=== PATIENT | female | born 1945 | race Hispanic/Latino ===

== ENCOUNTER 2017-12-13 16:32 | Emergency (ER) | payer SELFPAY ==
--- NOTE | 2017-12-13 17:37 | CT ---
HEAD CT WITHOUT CONTRAST: 12/13/17 HISTORY: Fall. Posttraumatic pain. COMPARISON: None. TECHNIQUE: Noncontrast head CT is performed from skull base to skull vertex. FINDINGS: No parenchymal hemorrhage. No extra-axial hematoma. No midline shift. Basilar cisterns are patent. Ag e appropriate brain volume. Cortical vang-white matter differentiation is preserved. Ventricles and sulci are patent and symmetric. White matter hypodensities due to chronic small vessel ischemic changes are noted. Adequate aeration of the sinuses and mastoid air cells. Calvarium is intact. There is a small midline frontal scalp hematoma. IMPRESSION: No acute intracranial process. No intracranial posttraumatic sequela. POS: [facility]
[2017-12-13 17:44] LABS: #Basophils 0.1 thou/uL (0.0-0.2); #Eosinphils 0.1 thou/uL (0.0-0.7); #Lymphocytes 2.2 thou/uL (1.20-3.40); #Monocytes 0.7 thou/uL (0.11-0.59); #Neutrophils 5.4 thou/uL (1.40-6.50); %Basophils 1.3 % (0.0-1.0); %Eosinophils 1.3 % (0.0-10.0); %Monocytes 7.8 % (0.0-10.0); %Neutrophils 63.6 % (42.0-75.0); Hemoglobin 14.5 g/dL (12.0-16.0); Mean Corpuscular HGB CONC 34.8 g/dL (32.0-36.0); Mean Corpuscular Hemoglobin 30.5 pg (27.0-31.0); Mean Corpuscular Volume 87.5 fL (78.0-98.0); Mean Platelet Volume 6.2 fL (7.4-10.4); Platelet Count 243 thou/uL (130-400); RBC Distribution Width 12.7 % (11.5-14.5); Red Blood Cell (RBC) Count 4.77 mill/uL (4.20-5.40); White Blood Cell (WBC) Count 8.4 thou/uL (4.8-10.8)
[2017-12-13] MEDS ORDERED: HYDROcodone/Acetaminophen 5/325 mg Tablet ONE (17:47)
[2017-12-13] MEDS ORDERED: Ibuprofen 200 MG TAB ONE (17:48)
[2017-12-13] MEDS ORDERED: Lisinopril 20 MG TAB ONE (17:48)
--- NOTE | 2017-12-13 17:48 | CT ---
FACE CT WITHOUT CONTRAST: 12/13/17 HISTORY: Fall. Evaluate for possible facial bone fracture. Patient landed on concrete. Hit her face. TECHNIQUE: Face CT is performed without contrast. Reformatted images are submitted for interpretation. FINDINGS: There is a hematoma involving the midline frontal scalp. Adequate aeration of the sinuses and mastoid air cells. Mandibular condyles are appropriately located. No evidence of a maxilla or mandible fract ure. Pterygoid plates are intact. Zygomatic arches are intact. There is evidence of a remote right orbital floor fracture with herniation of intraorbital fat throug h the orbital floor depression. No evidence of an acute fracture. No significant fluid in the right m axillary sinus. Bilateral osteomeatal complexes are patent. Mild rightward deviation of an intact nasal septum. Patient is essentially edentulous. The visualized oral cavity is unremarkable. Midline fatty raphae o f the tongue is preserved. IMPRESSION: 1. No acute posttraumatic sequela. 2. Remote right orbital floor fracture with inferior herniation of the intraorbital fat through the defect. Correlate clinically for longstanding entrapment. POS: [facility]
[2017-12-13 17:53] LABS: Clarity Clear (Clear)
[2017-12-13 17:55] LABS: Bilirubin Negative (Negative); Blood, Urine Negative (Negative); Glucose, Urine (Dipstick) Negative (Negative); Leukocyte Trace (Negative); Nitrite Negative (Negative); Protein, Urine (Dipstick) Negative (Neg-Trace); Specific Gravity, Urine 1.003 (1.002-1.036); Urobilinogen 0.2 mg/dL (0.2-1.0); pH, Urine 5.5 (5.0-9.0)
[2017-12-13 17:59] LABS: Bacteria/HPF None Seen HPF (None Seen); Crystals/HPF None Seen HPF (Negative); Hyaline Casts/LPF NONE SEEN LPF (0-3 Hyaline); Other Casts/LPF None Seen LPF (0-3 Hyaline); Oval Fat Bodies/HPF None Seen HPF (None Seen); RBC/HPF None Seen HPF (0-3); Renal Epithelial None Seen HPF (0-3); Sperm/HPF None Seen HPF (None Seen); Squamous Epithelial None Seen HPF (0-3); Transitional Epithelial NONE SEEN HPF (0-3); Trichomonas/HPF None Seen HPF (None Seen); WBC/HPF 0-3 HPF (0-3); Yeast-All Forms None Seen HPF (None Seen)
[2017-12-13 18:00] LABS: ALT (SGPT) 19 U/L (8-55); AST (SGOT) 23 U/L (5-34); Albumin 4.1 g/dL (3.4-4.8); Alkaline Phosphatase 70 U/L (40-150); Anion Gap 16 mmol/L (10-20); BUN (Urea Nitrogen) 9 mg/dL (9.8-20.1); Bilirubin, Total 0.4 mg/dL (0.2-1.2); Calc. Creatinine Clearance 0 mL/min (70-130); Calcium 9.7 mg/dL (7.8-10.44); Carbon Dioxide 24 mmol/L (23-31); Chloride 105 mmol/L (98-107); Estimated GFR-MDRD 63; Globulin 3.6 g/dL (2.4-3.5); Glucose 117 mg/dL (83-110); Potassium 3.6 mmol/L (3.5-5.1); Protein, Total 7.7 g/dL (6.0-8.3); Sodium 141 mmol/L (136-145)
[2017-12-13 18:04] LABS: CKMB 1.3 ng/mL (0-6.6); Troponin I Less than 0.010 ng/mL (< 0.028)
--- NOTE | 2017-12-13 18:34 | RAD ---
RIGHT KNEE FOUR VIEWS: 12/13/17 HISTORY: Injury. Fall. Pain. COMPARISON: None. FINDINGS: No joint effusion. Joint spaces are preserved. No fracture. No malalignment. Mildly focal prominent bony excrescence along the medial proximal tibia. Correlate clinically for poi nt tenderness in this region. If there is concern for possible osteochondroma, nonemergent MRI can be performed. IMPRESSION: Findings as above. POS: [facility]
== END 2017-12-13 18:36 | disposition home or self-care (01) ==
LOC: BURERS 16:32
DX: S09.90XA Unspecified injury of head, initial encounter (principal); S60.222A Contusion of left hand, initial encounter; S60.221A Contusion of right hand, initial encounter; S80.02XA Contusion of left knee, initial encounter; S80.01XA Contusion of right knee, initial encounter; S00.83XA Contusion of other part of head, initial encounter; F41.9 Anxiety disorder, unspecified; J44.9 Chronic obstructive pulmonary disease, unspecified; I10 Essential (primary) hypertension; F17.220 Nicotine dependence, chewing tobacco, uncomplicated; W19.XXXA Unspecified fall, initial encounter
CPT/HCPCS: 70450; 70486; 80053; 81003; 81015; 82553; 84484; 85025; 93005

== ENCOUNTER 2017-12-24 14:07 | Outpatient (CLI) | payer MEDICARE, MEDICAID ==
--- NOTE | 2017-12-24 15:41 | RAD ---
LUMBAR SPINE 3 VIEWS: Date: 12/24/17 Anterior compression fractures of T11 and T12 are evident, though they do not appear new. The T12 fra cture is the most prominent and is reduced in height anteriorly by about 40%. There may be the faires t amount of wedging of the superior end plate of L1. No recent fractures appreciated. Disc spaces are all normal in height. Osteophytes are seen at several lumbar levels. The SI joints appear normal. IMPRESSION: 1. Compression fractures of T11 and T12, predominantly the latter. Almost certainly longstanding. 2. Mild to moderate degenerative changes of the lumbar spine. POS: HOME
== END 2017-12-24 14:08 | disposition home or self-care (01) ==
LOC: BURRAD 14:07
PROVIDERS: ATTEND Family Medicine
DX: M51.36 Other intervertebral disc degeneration, lumbar region (principal); M47.896 Other spondylosis, lumbar region; Z87.81 Personal history of (healed) traumatic fracture
CPT/HCPCS: 72100

== ENCOUNTER 2017-12-26 15:28 | Inpatient (IN) | payer MEDICARE, MEDICAID ==
[2017-12-26 16:20] LABS: #Basophils 0.1 thou/uL (0.0-0.2); #Eosinphils 0.2 thou/uL (0.0-0.7); #Lymphocytes 2.2 thou/uL (1.20-3.40); #Monocytes 0.6 thou/uL (0.11-0.59); #Neutrophils 3.7 thou/uL (1.40-6.50); %Basophils 1.7 % (0.0-1.0); %Eosinophils 2.3 % (0.0-10.0); %Lymphocytes 32.5 % (21.0-51.0); %Monocytes 8.7 % (0.0-10.0); %Neutrophils 54.9 % (42.0-75.0); Hemoglobin 14.4 g/dL (12.0-16.0); Mean Corpuscular HGB CONC 34.8 g/dL (32.0-36.0); Mean Corpuscular Hemoglobin 30.7 pg (27.0-31.0); Mean Corpuscular Volume 88.3 fL (78.0-98.0); Mean Platelet Volume 5.9 fL (7.4-10.4); Platelet Count 271 thou/uL (130-400); RBC Distribution Width 12.8 % (11.5-14.5); Red Blood Cell (RBC) Count 4.69 mill/uL (4.20-5.40); White Blood Cell (WBC) Count 6.8 thou/uL (4.8-10.8)
[2017-12-26 16:25] LABS: Clarity Slightly Cloudy (Clear); Specific Gravity, Urine 1.025 (1.005-1.030)
[2017-12-26 16:26] LABS: Bilirubin Negative (Negative); Blood, Urine Negative (Negative); Glucose, Urine (Dipstick) Negative (Negative); Leukocyte Negative (Negative); Nitrite Negative (Negative); Protein, Urine (Dipstick) Negative (Neg-Trace); Urobilinogen 0.2 mg/dL (0.2-1.0)
[2017-12-26 16:36] LABS: ALT (SGPT) 20 U/L (8-55); AST (SGOT) 23 U/L (5-34); Alkaline Phosphatase 53 U/L (40-150); Anion Gap 14 mmol/L (10-20); BUN (Urea Nitrogen) 12 mg/dL (9.8-20.1); Bilirubin, Total 0.6 mg/dL (0.2-1.2); Calc. Creatinine Clearance 0 mL/min (70-130); Calcium 9.2 mg/dL (7.8-10.44); Carbon Dioxide 24 mmol/L (23-31); Chloride 105 mmol/L (98-107); Estimated GFR-MDRD 59; Globulin 3.5 g/dL (2.4-3.5); Glucose 159 mg/dL (83-110); Potassium 3.6 mmol/L (3.5-5.1); Protein, Total 7.5 g/dL (6.0-8.3); Sodium 139 mmol/L (136-145)
[2017-12-26 16:41] LABS: CKMB 0.7 ng/mL (0-6.6); Troponin I Less than 0.010 ng/mL (< 0.028)
--- NOTE | 2017-12-26 17:34 | CT ---
CT OF THE BRAIN WITHOUT CONTRAST 12/26/[address] was compared with prior study of 12/13. A few patchy areas of hypolucency are seen th roughout the deep white matter consistent with chronic ischemic changes. The various areas seem no di fferent than they were on the 12/13 exam. There were no findings strongly suggestive of acute stroke. MRI would be more sensitive to such. There is no sign of edema, bleeding, mass or ventricular enlarge ment. The visible paranasal sinuses are clear. IMPRESSION: Mild chronic ischemic changes, no different than the prior scan. No acute findings. POS: HOME
--- NOTE | 2017-12-26 17:36 | RAD ---
PORTABLE CHEST 12/26/17 An AP portable film at 1543 shows a normal sized heart and clear lungs. No infiltrate or effusion was seen. There is no vascular congestion or edema. The trachea is midline. IMPRESSION: No acute thoracic finding. POS: HOME
[2017-12-26] MEDS ORDERED: methylPREDNISolone Sod Succ/PF 125 MG/2 ML VIAL ONE (17:40)
[2017-12-26] MEDS ORDERED: Azithromycin 250 MG TAB ONE (19:03)
[2017-12-26] MEDS ORDERED: cefTRIAXone\\ROCEPHIN 1 GM VIAL ONE (19:03)
[2017-12-26] MEDS ORDERED: Albuterol Sulfate 1.25 MG/3 ML NEB ONE (19:21)
[2017-12-26] MEDS ORDERED: Ondansetron HCl/PF 4 MG/2 ML Vial IVP PRN (21:06)
[2017-12-26] MEDS ORDERED: Ondansetron ODT 4 MG TAB SL PRN (21:06)
[2017-12-26] MEDS ORDERED: Sodium Chloride 0.9% 1,000 ML IV SCH ×2 (21:06→23:24)
[2017-12-26] MEDS ORDERED: Albuterol Sulfate 2.5 mg/3 ml Neb NEB PRN (21:07)
--- NOTE | 2017-12-26 21:58 | CT ---
CT ANGIO OF THE CHEST WITH CONTRAST 12/26/[address] of the chest was performed after a bolus of IV contrast for evaluation of shortness of telma th and an elevated D-dimer. Axial slices were acquired and then 3D MIP reconstructions at various an gles through the coronary arteries were obtained. There is excellent opacification of pulmonary arterial tree. No filling defects were seen to suggest emboli. There is no sign of aortic aneurysm or dissection. The heart is enlarged somewhat but there i s no pericardial effusion. The vessels are rather prominent throughout the lungs raising the question of mild vascular congestion. The patient does have a large amount of scattered atelectasis in the ying ngs. The interstitium is a bit prominent, so some of this could even be mild edema. There are no larg e effusions just potentially some very tiny ones posteriorly. Mediastinum shows no mass or significan t adenopathy. Scans into the upper abdomen reveal no adrenal mass. The visible portions of the liver showed no sign of mass. The spleen was normal in size. The upper halves of the kidneys were seen which showed no ac tanacross change. IMPRESSION: 1. No evidence of pulmonary embolism. 2. Mild cardiomegaly with possible mild vascular congestion. 3. Somewhat prominent but diffuse areas of atelectasis. POS: HOME
[2017-12-26] MEDS: Acetaminophen 325 MG TAB PO PRN (23:00)
[2017-12-26 23:08] VITALS: BMI 23.2
[2017-12-27 05:25] LABS: ALT (SGPT) 18 U/L (8-55); AST (SGOT) 18 U/L (5-34); Albumin 3.6 g/dL (3.4-4.8); Alkaline Phosphatase 50 U/L (40-150); Anion Gap 16 mmol/L (10-20); BUN (Urea Nitrogen) 13 mg/dL (9.8-20.1); Bilirubin, Total 0.3 mg/dL (0.2-1.2); Calc. Creatinine Clearance 41 mL/min (70-130); Calcium 8.8 mg/dL (7.8-10.44); Carbon Dioxide 19 mmol/L (23-31); Chloride 109 mmol/L (98-107); Estimated GFR-MDRD 54; Glucose 178 mg/dL (83-110); Potassium 3.9 mmol/L (3.5-5.1); Protein, Total 6.6 g/dL (6.0-8.3); Sodium 140 mmol/L (136-145)
[2017-12-27 05:36] LABS: #Lymphocytes 1.1 thou/uL (1.20-3.40); #Monocytes 0.1 thou/uL (0.11-0.59); #Neutrophils 8.5 thou/uL (1.40-6.50); %Basophils 0.3 % (0.0-1.0); %Monocytes 1.4 % (0.0-10.0); %Neutrophils 87.3 % (42.0-75.0); Mean Corpuscular HGB CONC 35.7 g/dL (32.0-36.0); Mean Corpuscular Hemoglobin 31.5 pg (27.0-31.0); Mean Corpuscular Volume 88.1 fL (78.0-98.0); Mean Platelet Volume 6.1 fL (7.4-10.4); Platelet Count 224 thou/uL (130-400); RBC Distribution Width 12.5 % (11.5-14.5); Red Blood Cell (RBC) Count 4.12 mill/uL (4.20-5.40); White Blood Cell (WBC) Count 9.7 thou/uL (4.8-10.8)
[2017-12-27] MEDS ORDERED: Prevnar 13-Val Conj/PF 0.5 ML SYRINGE IM ONE (09:00)
[2017-12-27] MEDS: Azithromycin 250 MG TAB PO SCH (09:11)
[2017-12-27] MEDS: cefTRIAXone\\ROCEPHIN 1 GM in Sodium Chloride 0.9% 100 ML IVPB SCH (09:11)
--- NOTE | 2017-12-27 10:59 | RAD ---
CHEST 2 VIEWS: Date: 12/27/17 Comparison is made with the 12/26/17 study. FINDINGS: The heart size remains stable. No lobar consolidation or effusion seen. The vessels may be minimally more prominent today than yesterday, but otherwise, there are no particular changes. There are severa l mild vertebral compressions in the low thoracic region that appear longstanding. The trachea is mid line. IMPRESSION: Similar to yesterday, but perhaps slightly increased vascular prominence. POS: HOME
[2017-12-27] MEDS: Acetaminophen 325 MG TAB PO PRN (13:29)
[2017-12-27] MEDS ORDERED: Lorazepam 0.5 MG TAB PO PRN (14:37)
--- NOTE | 2017-12-27 17:25 | HP ---
CHIEF COMPLAINT: Shortness of breath. HISTORY OF PRESENT ILLNESS: The patient is a 72-year-old white female with a history of COPD who maria del rosario arently moved to this area about 3 months ago and did not take her nebulizers with her when she moved and thus is on no respiratory medications, who says for the last 2 days has had increased shortness of breath with some occasional confusion and dry cough. She has had no chest pain, shortness of telma th is mainly with exertional ambulation. She does report about a week prior to admission, she was wa lking from [facility] back to the house and felt weak and tired and short of breath and fell down withou t true syncope. Other than that, she reports no significant new problems that shortness of breath be angela about 2 days ago with some wheezing, no fevers, no chills, no nausea, no vomiting, and no other s ignificant complaints. PAST MEDICAL HISTORY: 1. COPD. 2. Hypertension. 3. Hypothyroidism. 4. Gastroesophageal reflux disease. 5. History of osteoporosis with compression fractures of thoracic T11 and T12. 6. History of depression with anxiety. PAST SURGICAL HISTORY: Noncontributory. SOCIAL HISTORY: The patient denies any smoking use. She does dip snuff and had lived for many years with her who was a frequent smoker. ALLERGIES: PENICILLIN. CURRENT MEDICATIONS: Include Risperdal 10 mg at bedtime, lorazepam 1 mg q.12 h. p.r.n. anxiety, sert raline 100 mg daily, Tylenol with Codeine #3 one tablet every 6 hours p.r.n. pain, lisinopril 20 mg d aily, levothyroxine 125 mcg daily, omeprazole 40 mg daily, nitroglycerin sublingual p.r.n. chest pain for angina. REVIEW OF SYSTEMS: The patient reports no recent fevers, chills, or night sweats. No nausea, vomiti ng or diarrhea. No significant headache reported. The patient reports no significant weight loss no r weight gain. Appetite has been at its baseline. No dysuria, hematuria or change in urinary freque ncy. Patient denies any recent weight changes. No increased lower extremity edema. No rashes to th e skin noted. The patient denies any visual changes. She reports no significant increased back pain above her baseline and she reports her depression with anxiety is at its baseline, although she says "I had a lot of things to think about" Apparently her 3 months ago, necessitati ng her recent move. LABORATORY DATA: In the emergency room, she had a comprehensive metabolic panel significant for gluc ose of 159. CK-MBs were normal. BNP was normal. The patient also had a D-dimer that was slightly e levated at 0.82. She underwent a CT scan of the chest with contrast which showed no obvious signs of pulmonary emboli. LABORATORY AND X-RAY FINDINGS: Chest x-ray showed chronic changes without acute findings. CT scan o f the brain was within normal limits as well. Blood cultures and urine cultures were pending. Urina lysis was normal. PHYSICAL EXAMINATION: VITAL SIGNS: On admission significant for a pulse of 77, temperature 98.2, blood pressure 122/67, O2 sat was 86% on room air with ambulation and 96% on 2 liters. GENERAL: Elderly white female, alert and oriented x3. HEENT: Atraumatic, normocephalic. Extraocular movements are intact. Pupils equal, round, reactive to light and accommodation. NECK: Supple, no masses palpated. Oropharynx within normal limits. CHEST: Had coarse breath sounds, expiratory intermittent wheezes bilaterally. HEART: Regular rate and rhythm. ABDOMEN: Soft, nontender, nondistended, no masses palpated. Bowel sounds positive in all 4 quadrant s. EXTREMITIES: Show no cyanosis, clubbing or edema. ASSESSMENT AND PLAN: 1. Chronic obstructive pulmonary disease exacerbation. The patient is currently O2 dependent, which is not her baseline, exacerbation likely secondary to noncompliance with her nebulizers and possible recent upper respiratory infection. Blood cultures are pending. We will place patient on Zithromax and Rocephin pending blood cultures. We will start her on Solu-Medrol. She was given an initial do se in the emergency room, will be given q.8h 100 mg IV for the initial 24-48 hours. She will be star janice on nebulizers, DuoNebs q.i.d., and she will continue oxygen 2 liters per nasal cannula to keep sa turations above 89%. 2. Hypertension, presently controlled. Continue current medications. 3. Osteoporosis with vertebral fracture, Tylenol No. 3 p.r.n. pain. 4. Depression, presently stable. Continue on sertraline and Abilify. DISPOSITION: Hopefully, the patient will be home within 2-3 days depending upon how she improves wit h treatment of her COPD exacerbation.
[2017-12-28] MEDS: Levothyroxine Sodium 25 MCG TAB PO SCH (06:12)
[2017-12-28] MEDS: Levothyroxine Sodium 100 MCG TAB PO SCH (06:12)
[2017-12-28] MEDS: cefTRIAXone\\ROCEPHIN 1 GM in Sodium Chloride 0.9% 100 ML IVPB SCH (08:47)
[2017-12-28] MEDS: Lisinopril 20 MG TAB PO SCH (08:49)
[2017-12-28] MEDS: Azithromycin 250 MG TAB PO SCH (08:49)
[2017-12-28] MEDS: Aripiprazole 10 MG TAB PO SCH (08:49)
[2017-12-28] MEDS: Acetaminophen/Codeine 30-300mg Tablet PO PRN (21:37)
[2017-12-29] MEDS: Levothyroxine Sodium 100 MCG TAB PO SCH (05:36)
[2017-12-29] MEDS: Levothyroxine Sodium 25 MCG TAB PO SCH (05:36)
[2017-12-29 06:02] VITALS: TEMP 98.5
[2017-12-29] MEDS ORDERED: predniSONE 20 MG TAB PO SCH (09:00)
[2017-12-29] MEDS: cefTRIAXone\\ROCEPHIN 1 GM in Sodium Chloride 0.9% 100 ML IVPB SCH (09:12)
[2017-12-29] MEDS: Lisinopril 20 MG TAB PO SCH (09:13)
[2017-12-29] MEDS: Aripiprazole 10 MG TAB PO SCH (09:15)
[2017-12-29] MEDS: Azithromycin 250 MG TAB PO SCH (09:15)
[2017-12-29] MEDS: Acetaminophen/Codeine 30-300mg Tablet PO PRN (13:37)
[2017-12-29 17:51] VITALS: BP 137/74
[2017-12-30] MEDS ORDERED: Nitroglycerin 0.4 MG TAB (25 Tab Bottle) SL PRN (02:40)
[2017-12-30] MEDS ORDERED: Aripiprazole 10 MG TAB PO SCH (02:40)
[2017-12-30] MEDS ORDERED: Non-Formulary Item 1 EACH (Omeprazole [Omeprazole] 40 MG) PO SCH (02:40)
[2017-12-30] MEDS ORDERED: Lorazepam 0.5 MG TAB PO PRN (02:40)
[2017-12-30] MEDS ORDERED: Lisinopril 20 MG TAB PO SCH (02:40)
[2017-12-30] MEDS ORDERED: Acetaminophen/Codeine 30-300mg Tablet PO PRN (02:40)
[2017-12-30] MEDS ORDERED: Non-Formulary Item 1 EACH (Sertraline Hcl [Sertraline Hcl] 100 MG) PO SCH (02:40)
--- NOTE | 2017-12-30 02:40 | DIS ---
DATE OF ADMISSION: 12/26/2017 DATE OF DISCHARGE: 12/29/2017 ADMISSION DIAGNOSES: Chronic obstructive pulmonary disease exacerbation with hypoxia. SECONDARY DIAGNOSES: Include hypertension, osteoporosis, depression, hypothyroidism. PROCEDURES: 12/26/2017, chest x-ray shows no acute thoracic finding. 2017, brain CT shows mild chronic ischemic changes, no different than the prior scan with no acute findings. 12/26/2017, chest/thorax CTA shows no evidence of pulmonary embolism, mild cardiomegaly with possible mild vascular congestion, somewhat prominent, but diffuse areas of atelectasis. 12/27/2017, chest x-ray, similar to yesterday, but perhaps slightly increased vascular prominence. HOSPITAL COURSE: This is a 72-year-old female with COPD, recently moved to the area; however, has not had her typical p.r.n. nebulized medications. She presented to [facility] with complaints of dyspnea and slight confusion. In the emergency room, she notably had an elevated D-dimer, for which the above-mentioned CTA of the chest and thorax was done. The patient remained hypoxic with ambulation in the emergency room, and thus, she was admitted for further treatment for COPD exacerbation. On the floor, she was treated with both Rocephin and azithromycin along with IV Solu-Medrol and scheduled nebulized treatments. At rest, she was able to successfully wean off of supplemental O2. Her respiratory status gradually improved; however, she remains hypoxic with ambulation; therefore, home oxygen has been arranged. The patient has underlying physical deconditioning, and a consultation was performed by PT and OT. They have suggested that she continue PT/OT via home health. Home health has been arranged for this purpose with [facility]. The patient is afebrile with no leukocytosis and stable respiratory status, and is amenable to discharge home at this time. DISPOSITION: Patient will be discharged to her home setting where she lives with her daughter and will have further care via [facility] to include PT and OT. DISCHARGE MEDICATIONS: Include DuoNeb q.6 hours p.r.n., prednisone 20 mg p.o. daily x5 days, levothyroxine 125 mg p.o. daily, lisinopril 20 mg p.o. daily, Ativan 1 mg p.o. b.i.d. p.r.n., Protonix 40 mg p.o. daily, sertraline 100 mg p.o. daily. MTDD
[2017-12-30] MEDS ORDERED: Levothyroxine Sodium 50 MCG TAB PO SCH (06:00)
== END 2017-12-29 18:15 | disposition home health service (06) | DRG 192 ==
LOC: BURERS 15:28 → BURMED 18:09
PROVIDERS: ADMIT Family Medicine; ATTEND Family Medicine
DX: J44.1 Chronic obstructive pulmonary disease with (acute) exacerbation (principal); I10 Essential (primary) hypertension; F32.9 Major depressive disorder, single episode, unspecified; E03.9 Hypothyroidism, unspecified; K21.9 Gastro-esophageal reflux disease without esophagitis; R09.02 Hypoxemia; R53.1 Weakness; M81.0 Age-related osteoporosis without current pathological fracture; F17.220 Nicotine dependence, chewing tobacco, uncomplicated; F41.9 Anxiety disorder, unspecified; Z91.14 Patient's other noncompliance with medication regimen; Z88.0 Allergy status to penicillin; Z79.899 Other long term (current) drug therapy
CPT/HCPCS: 36415; 70450; 71045; 71046; 71275; 80053; 81003; 82553; 83880; 84484; 85025; 85379; 87040; 87086; 90471; 90670; 94640; 94760; 96374; 96375; A4216; G0009; G8978-GP-CK; G8979-GP-CJ; J0696; J2920; J2930; J7050; J7506; J7620

== ENCOUNTER 2018-10-24 21:23 | Emergency (ER) | payer MEDICARE, MEDICAID ==
[~2018-10-24 21:23] MED LIST: Iopamidol 370 76% 125 ML VIAL FS ONE
[2018-10-24] MEDS ORDERED: Nitroglycerin 2% Ointment 1 INCH/1 GM Packet ONE (21:46)
[2018-10-24 21:59] LABS: #Basophils 0.1 thou/uL (0.0-0.2); #Eosinphils 0.2 thou/uL (0.0-0.7); #Lymphocytes 1.8 thou/uL (1.20-3.40); #Monocytes 0.6 thou/uL (0.11-0.59); #Neutrophils 3.6 thou/uL (1.40-6.50); %Basophils 1.3 % (0.0-1.0); %Eosinophils 3.7 % (0.0-10.0); %Lymphocytes 28.7 % (21.0-51.0); %Monocytes 9.9 % (0.0-10.0); %Neutrophils 56.4 % (42.0-75.0); Hemoglobin 13.2 g/dL (12.0-16.0); Mean Corpuscular HGB CONC 31.9 g/dL (32.0-36.0); Mean Corpuscular Hemoglobin 30.6 pg (27.0-31.0); Mean Corpuscular Volume 95.9 fL (78.0-98.0); Mean Platelet Volume 7.2 fL (7.4-10.4); Platelet Count 216 thou/uL (130-400); RBC Distribution Width 12.6 % (11.5-14.5); Red Blood Cell (RBC) Count 4.33 mill/uL (4.20-5.40); White Blood Cell (WBC) Count 6.4 thou/uL (4.8-10.8)
[2018-10-24 22:12] LABS: ALT (SGPT) 10 U/L (8-55); AST (SGOT) 17 U/L (5-34); Albumin 3.9 g/dL (3.4-4.8); Alkaline Phosphatase 86 U/L (40-150); Anion Gap 12 mmol/L (10-20); BUN (Urea Nitrogen) 10 mg/dL (9.8-20.1); Bilirubin, Total 0.4 mg/dL (0.2-1.2); Calc. Creatinine Clearance 0 mL/min (70-130); Calcium 9.3 mg/dL (7.8-10.44); Carbon Dioxide 29 mmol/L (23-31); Chloride 105 mmol/L (98-107); Estimated GFR-MDRD 68; Globulin 3.1 g/dL (2.4-3.5); Glucose 100 mg/dL (83-110); Potassium 3.7 mmol/L (3.5-5.1); Sodium 142 mmol/L (136-145)
[2018-10-24] MEDS ORDERED: Furosemide 40 MG/4 ML VIAL ONE (22:29)
[2018-10-24] MEDS ORDERED: hydrALAZINE 20 MG/ML VIAL ONE (23:29)
[2018-10-24] MEDS ORDERED: cloNIDine 0.1 MG TAB ONE (23:48)
[2018-10-24] MEDS ORDERED: Lorazepam 0.5 MG TAB ONE (23:48)
--- NOTE | 2018-10-25 09:12 | RAD ---
PORTABLE CHEST: Date: 10/24/18 An AP portable film at 2155 hours is compared with the 12/27/17 study. FINDINGS: The heart remains normal in size. The vasculature seems ever so slightly prominent compared to before , but gross pulmonary edema or pleural effusions are not seen. No lobar consolidation is evident. IMPRESSION: Minor vascular prominence. POS: HOME
--- NOTE | 2018-10-25 09:13 | RAD ---
RIGHT FOOT 3 VIEWS: Date: 10/24/18 Bones are slightly osteopenic, but no fracture is seen. All bones and joints appear intact. IMPRESSION: No acute findings. POS: HOME
--- NOTE | 2018-10-25 10:09 | CT ---
PRELIMINARY REPORT/[facility]/EMERGENCY AFTER HOURS PROCEDURE: EXAM: CT Angiography Chest With Contrast EXAM DATE/TIME: 10/24/2018 10:45 PM CLINICAL HISTORY: 73 years old, female; Signs and symptoms; Angina and shortness of breath; Patient HX: PT stated she w as having difficulty breathing starting a few days ago and today started having cp; Additional info: R/O pe, elev d dimer TECHNIQUE: Imaging protocol: Axial computed tomographic angiography images of the chest with intravenous contras t using CT angiography protocol. 3D rendering: MIP reconstructed images were created and reviewed. Radiation optimization: All CT scans at this facility use at least one of these dose optimization marvin hniques: automated exposure control; mA and/or kV adjustment per patient size (includes targeted exam s where dose is matched to clinical indication); or iterative reconstruction. Contrast material: ISOVUE 370; Contrast volume: 100 ml; Contrast route: RT AC; COMPARISON: No relevant prior studies available. FINDINGS: Pulmonary arteries: No visible acute pulmonary embolism. Aorta: There are atherosclerotic aortic calcifications. Lungs: There is bibasilar atelectatic change or scarring. There is patchy groundglass opacity in the right upper lobe suspicious for patchy pneumonitis or asymmetric pulmonary edema. Pleural space: Normal. No pneumothorax. No pleural effusion. Heart: Normal. No cardiomegaly. No pericardial effusion. Mediastinum: There is a small hiatal hernia. Lymph nodes: There is mild mediastinal and bilateral hilar lymphadenopathy. Bones/joints: There are chronic appearing compression fractures involving the T10 and T9 vertebral geurrero dies. Soft tissues: Unremarkable. IMPRESSION: 1. There is patchy groundglass opacity in the right upper lobe suspicious for patchy pneumonitis or a symmetric pulmonary edema. 2. There is mild mediastinal and bilateral hilar lymphadenopathy. 3. There is a small hiatal hernia. 4. No visible acute pulmonary embolism. Thank you for allowing us to participate in the care of your patient. Dictated and Authenticated by: Denton Jimenez MD 10/24/2018 11:25 PM Central Time ([place] & [place]) FINAL REPORT CT ANGIO OF CHEST: Date: 10/24/[address] of the chest was obtained and injection of IV contrast was done. MIP reconstructions were d one afterwards. Comparison made with the prior study of 12/26/17. FINDINGS: There is excellent filling of the pulmonary arteries. No defects seen to suggest emboli. There is no evidence of aortic aneurysm or dissection. No pericardial effusion seen. Both coronary artery systems fill well. Some minor amounts of mediastinal adenopathy are present, which is nonspecific. The lungs show some mild interstitial prominence and basilar atelectasis. There is a patchy ground-gl ass area in the right upper lobe that could be a small area of pneumonitis or asymmetric edema. I fav or the former. There are no effusions. A small hiatal hernia is present, which was present before. Th e visible portions of the upper abdomen were unremarkable. An incidental finding was compression of two thoracic vertebra, approximately T8 and T9, and they are unchanged from the prior CT scans. IMPRESSION: 1. No evidence of pulmonary embolism. 2. Patchy ground-glass area in the right upper lobe. Possibly pneumonitis or asymmetric edema. Mild interstitial prominence and basilar atelectasis elsewhere. 3. Small hiatal hernia, longstanding. Report in agreement with preliminary reading by Geov[facility]. POS: HOME
== END 2018-10-24 23:45 | disposition short-term general hospital (02) ==
LOC: BURERS 21:23
DX: I11.0 Hypertensive heart disease with heart failure (principal); I50.9 Heart failure, unspecified; I16.0 Hypertensive urgency; E03.9 Hypothyroidism, unspecified; K21.9 Gastro-esophageal reflux disease without esophagitis; J44.9 Chronic obstructive pulmonary disease, unspecified; F41.9 Anxiety disorder, unspecified; F32.9 Major depressive disorder, single episode, unspecified; F17.220 Nicotine dependence, chewing tobacco, uncomplicated; Z79.899 Other long term (current) drug therapy
CPT/HCPCS: 71045; 71275; 80053; 83880; 84484; 85025; 85379; 93005; 96374; 96375; J0360; J1940; Q9967

== ENCOUNTER 2019-01-25 20:06 | Emergency (ER) | payer MEDICARE, OTHER ==
[~2019-01-25 20:06] MED LIST changes: +Iopamidol 370 76% 100 ML VIAL ONE; -Iopamidol 370 76% 125 ML VIAL FS ONE
[2019-01-25] MEDS ORDERED: Ketorolac Tromethamine 30 MG/ML VIAL ONE (20:23)
[2019-01-25 20:33] LABS: #Basophils 0.1 thou/uL (0.0-0.2); #Eosinphils 0.3 thou/uL (0.0-0.7); #Lymphocytes 3.1 thou/uL (1.20-3.40); #Monocytes 0.9 thou/uL (0.11-0.59); #Neutrophils 4.7 thou/uL (1.40-6.50); %Basophils 1.3 % (0.0-1.0); %Lymphocytes 34.1 % (21.0-51.0); %Neutrophils 51.6 % (42.0-75.0); Hemoglobin 13.4 g/dL (12.0-16.0); Mean Corpuscular HGB CONC 32.3 g/dL (32.0-36.0); Mean Corpuscular Hemoglobin 30.6 pg (27.0-31.0); Mean Platelet Volume 6.6 fL (7.4-10.4); Platelet Count 245 thou/uL (130-400); RBC Distribution Width 12.7 % (11.5-14.5); Red Blood Cell (RBC) Count 4.38 mill/uL (4.20-5.40); White Blood Cell (WBC) Count 9.2 thou/uL (4.8-10.8)
[2019-01-25 20:47] LABS: ALT (SGPT) 11 U/L (8-55); AST (SGOT) 20 U/L (5-34); Albumin 3.8 g/dL (3.4-4.8); Alkaline Phosphatase 94 U/L (40-150); Anion Gap 15 mmol/L (10-20); BUN (Urea Nitrogen) 9 mg/dL (9.8-20.1); Bilirubin, Total 0.2 mg/dL (0.2-1.2); Calc. Creatinine Clearance 0 mL/min (70-130); Calcium 9.5 mg/dL (7.8-10.44); Carbon Dioxide 26 mmol/L (23-31); Chloride 105 mmol/L (98-107); Estimated GFR-MDRD 69; Globulin 3.7 g/dL (2.4-3.5); Glucose 124 mg/dL (83-110); Lipase 29 U/L (8-78); Potassium 4.2 mmol/L (3.5-5.1); Protein, Total 7.5 g/dL (6.0-8.3); Sodium 142 mmol/L (136-145)
--- NOTE | 2019-01-25 21:30 | CT ---
CT Abdomen Pelvis W Con HISTORY: Right-sided abdomen pain. COMPARISON: None. FINDINGS: The lung bases show some mild chronic change. No infiltrative process. The liver shows suggestion of fatty change. The spleen and pancreas regions appear unremarkable. The gallbladder has been removed. Right and left adrenal glands and right and left kidneys are normal in size. There is no significant periaortic or mesenteric lymphadenopathy. No evidence of obstruction. Mild amount of fluid is seen within nondistended small bowel loops, this is nonspecific. CT of pelvis performed with contrast: The appendix is normal. No significant pelvic lymphadenopathy o r signs of mass. IMPRESSION: No acute findings of abdomen or pelvis.
== END 2019-01-25 21:46 | disposition home or self-care (01) ==
LOC: BURERS 20:06
DX: K59.00 Constipation, unspecified (principal); E03.9 Hypothyroidism, unspecified; K21.9 Gastro-esophageal reflux disease without esophagitis; I10 Essential (primary) hypertension; M81.0 Age-related osteoporosis without current pathological fracture; J44.9 Chronic obstructive pulmonary disease, unspecified; F41.9 Anxiety disorder, unspecified; F32.9 Major depressive disorder, single episode, unspecified; F17.210 Nicotine dependence, cigarettes, uncomplicated; Z79.899 Other long term (current) drug therapy
CPT/HCPCS: 74177; 80053; 83605; 83690; 85025; J1885; Q9967

== ENCOUNTER 2019-05-02 19:03 | Emergency (ER) | payer MEDICARE, OTHER ==
[2019-05-02] MEDS ORDERED: Ondansetron ODT 4 MG TAB ONE (19:29)
[2019-05-02 19:48] LABS: #Basophils 0.2 thou/uL (0.0-0.2); #Eosinphils 0.3 thou/uL (0.0-0.7); #Lymphocytes 2.7 thou/uL (1.20-3.40); #Neutrophils 6.3 thou/uL (1.40-6.50); %Basophils 1.5 % (0.0-1.0); %Eosinophils 2.8 % (0.0-10.0); %Lymphocytes 25.5 % (21.0-51.0); %Monocytes 9.4 % (0.0-10.0); %Neutrophils 60.8 % (42.0-75.0); Hemoglobin 13.7 g/dL (12.0-16.0); Mean Corpuscular HGB CONC 31.9 g/dL (32.0-36.0); Mean Corpuscular Hemoglobin 31.4 pg (27.0-31.0); Mean Corpuscular Volume 98.4 fL (78.0-98.0); Mean Platelet Volume 8.4 fL (7.4-10.4); Platelet Count 220 thou/uL (130-400); RBC Distribution Width 12.6 % (11.5-14.5); Red Blood Cell (RBC) Count 4.36 mill/uL (4.20-5.40); White Blood Cell (WBC) Count 10.4 thou/uL (4.8-10.8)
[2019-05-02 20:03] LABS: Base Excess-Venous 4.3 mmol/L (-2.0 to 3.0); Bicarbonate (HCO3v) 30.1 mmol/L (22.0-28.0); CO2 Tension (PvCO2) 47.8 mmHg (40.0-50.0); Calcium, Ionized 1.16 mmol/L (See Comments:); Chloride 107 mmol/L (98-107); Potassium 3.7 mmol/L (3.5-5.1); Sodium 143 mmol/L (138-145); T. Carbon Dioxide 31.5 mmol/L (22.0-28.0); vO2 Saturation-calc 40.7 % (60.0-85.0)
[2019-05-02 20:11] LABS: ALT (SGPT) 15 U/L (8-55); AST (SGOT) 21 U/L (5-34); Albumin 4.1 g/dL (3.4-4.8); Alkaline Phosphatase 83 U/L (40-110); Anion Gap 16 mmol/L (10-20); BUN (Urea Nitrogen) 12 mg/dL (9.8-20.1); Bilirubin, Total 0.3 mg/dL (0.2-1.2); Calc. Creatinine Clearance 0 mL/min (70-130); Calcium 9.5 mg/dL (7.8-10.44); Carbon Dioxide 26 mmol/L (23-31); Chloride 104 mmol/L (98-107); Estimated GFR-MDRD 55; Glucose 98 mg/dL (83-110); Potassium 3.9 mmol/L (3.5-5.1); Protein, Total 7.1 g/dL (6.0-8.3); Sodium 142 mmol/L (136-145)
[2019-05-02] MEDS ORDERED: predniSONE 20 MG TAB ONE (20:19)
--- NOTE | 2019-05-02 21:53 | RAD ---
PORTABLE CHEST: Date: 05-02-19 An AP portable film at 1920 is compared with a 10-24-18 study. FINDINGS: The heart is normal in size and the lungs are clear. There is no vascular congestion or edema. The ri ght hemidiaphragm is slightly elevated, significance unknown. The aorta is tortuous. IMPRESSION: No acute finding. POS: HOME
== END 2019-05-02 20:25 | disposition home or self-care (01) ==
LOC: BURERS 19:03
DX: J44.1 Chronic obstructive pulmonary disease with (acute) exacerbation (principal); K21.9 Gastro-esophageal reflux disease without esophagitis; I10 Essential (primary) hypertension; F41.9 Anxiety disorder, unspecified; F32.9 Major depressive disorder, single episode, unspecified; F17.220 Nicotine dependence, chewing tobacco, uncomplicated; Z79.899 Other long term (current) drug therapy
CPT/HCPCS: 71045; 80053; 82330; 82435; 82803; 83880; 84132; 84295; 84484; 85014; 85025; 87804; 93005; J7512; Q0162

== ENCOUNTER 2019-09-07 12:33 | Emergency (ER) | payer MEDICARE, MEDICAID ==
[2019-09-07 13:03] LABS: #Basophils 0.1 thou/uL (0.0-0.2); #Eosinphils 0.2 thou/uL (0.0-0.7); #Lymphocytes 1.6 thou/uL (1.20-3.40); #Monocytes 0.6 thou/uL (0.11-0.59); #Neutrophils 4.3 thou/uL (1.40-6.50); %Basophils 1.4 % (0.0-1.0); %Eosinophils 3.6 % (0.0-10.0); %Lymphocytes 23.2 % (21.0-51.0); %Monocytes 8.5 % (0.0-10.0); %Neutrophils 63.4 % (42.0-75.0); Hemoglobin 13.4 g/dL (12.0-16.0); Mean Corpuscular HGB CONC 31.4 g/dL (32.0-36.0); Mean Corpuscular Hemoglobin 31.5 pg (27.0-31.0); Mean Platelet Volume 7.3 fL (7.4-10.4); Platelet Count 258 thou/uL (130-400); RBC Distribution Width 12.8 % (11.5-14.5); Red Blood Cell (RBC) Count 4.24 mill/uL (4.20-5.40); White Blood Cell (WBC) Count 6.8 thou/uL (4.8-10.8)
[2019-09-07] MEDS ORDERED: Acetaminophen/Codeine 30-300mg Tablet ONE (13:06)
[2019-09-07 13:17] LABS: ALT (SGPT) 11 U/L (8-55); AST (SGOT) 20 U/L (5-34); Albumin 3.9 g/dL (3.4-4.8); Alkaline Phosphatase 61 U/L (40-110); Anion Gap 14 mmol/L (10-20); BUN (Urea Nitrogen) 9 mg/dL (9.8-20.1); Bilirubin, Total 0.3 mg/dL (0.2-1.2); Calc. Creatinine Clearance 0 mL/min (70-130); Calcium 9.1 mg/dL (7.8-10.44); Carbon Dioxide 29 mmol/L (23-31); Chloride 105 mmol/L (98-107); Estimated GFR-MDRD 69; Globulin 3.1 g/dL (2.4-3.5); Glucose 123 mg/dL (83-110); Lipase 22 U/L (8-78); Potassium 3.8 mmol/L (3.5-5.1); Sodium 144 mmol/L (136-145)
[2019-09-07 13:18] LABS: Base Excess-Venous 4.8 mmol/L (-2.0 to 3.0); Bicarbonate (HCO3v) 32.9 mmol/L (22.0-28.0); CO2 Tension (PvCO2) 62.9 mmHg (40.0-50.0); Calcium, Ionized 1.17 mmol/L (See Comments:); Chloride 102 mmol/L (98-107); Hemoglobin - Calc 14.1 g/dL (12.0-16.0); Potassium 3.6 mmol/L (3.5-5.1); Sodium 144 mmol/L (138-145); T. Carbon Dioxide 34.8 mmol/L (22.0-28.0); vO2 Saturation-calc 72.3 % (60.0-85.0)
--- NOTE | 2019-09-07 15:58 | RAD ---
PORTABLE CHEST: 09/07/19 An AP portable film at 1259 is compared with an 05/02/19 study. The heart is slightly enlarged but no different than before. There is no congestive change, pleural e ffusion, or focal pulmonary infiltrate. The mediastinum was unremarkable. IMPRESSION: No acute thoracic finding. POS: HOME
== END 2019-09-07 13:45 | disposition home or self-care (01) ==
LOC: BURERS 12:33
DX: N64.4 Mastodynia (principal); E03.9 Hypothyroidism, unspecified; K21.9 Gastro-esophageal reflux disease without esophagitis; I10 Essential (primary) hypertension; J44.9 Chronic obstructive pulmonary disease, unspecified; F41.9 Anxiety disorder, unspecified; F32.9 Major depressive disorder, single episode, unspecified; F17.220 Nicotine dependence, chewing tobacco, uncomplicated; F17.290 Nicotine dependence, other tobacco product, uncomplicated
CPT/HCPCS: 36415; 71045; 80053; 82330; 82803; 83690; 83880; 84484; 85014; 85025; 93005

== ENCOUNTER 2019-12-04 19:51 | Emergency (ER) | payer MEDICARE, MEDICAID ==
[2019-12-04 20:30] LABS: #Basophils 0.1 thou/uL (0.0-0.2); #Eosinphils 0.2 thou/uL (0.0-0.7); #Lymphocytes 2.3 thou/uL (1.20-3.40); #Monocytes 0.9 thou/uL (0.11-0.59); #Neutrophils 7.5 thou/uL (1.40-6.50); %Eosinophils 1.7 % (0.0-10.0); %Lymphocytes 20.6 % (21.0-51.0); %Monocytes 8.1 % (0.0-10.0); %Neutrophils 68.5 % (42.0-75.0); Hemoglobin 11.9 g/dL (12.0-16.0); Mean Corpuscular HGB CONC 31.4 g/dL (32.0-36.0); Mean Corpuscular Volume 98.6 fL (78.0-98.0); Mean Platelet Volume 6.7 fL (7.4-10.4); Platelet Count 235 thou/uL (130-400); RBC Distribution Width 12.8 % (11.5-14.5); Red Blood Cell (RBC) Count 3.86 mill/uL (4.20-5.40); White Blood Cell (WBC) Count 10.9 thou/uL (4.8-10.8)
[2019-12-04 20:40] LABS: Bilirubin Negative (Negative); Blood, Urine Negative (Negative); Glucose, Urine (Dipstick) Negative (Negative); Leukocyte Negative (Negative); Nitrite Negative (Negative); Protein, Urine (Dipstick) 30 mg/dL (Neg-Trace); Urobilinogen 0.2 mg/dL (Less than 2)
[2019-12-04 20:41] LABS: Clarity Hazy (Clear)
[2019-12-04 20:42] LABS: ALT (SGPT) 14 U/L (8-55); AST (SGOT) 16 U/L (5-34); Albumin 3.8 g/dL (3.4-4.8); Alkaline Phosphatase 55 U/L (40-110); Anion Gap 13 mmol/L (10-20); BUN (Urea Nitrogen) 11 mg/dL (9.8-20.1); Bilirubin, Total 0.5 mg/dL (0.2-1.2); Calc. Creatinine Clearance 0 mL/min (70-130); Calcium 8.4 mg/dL (7.8-10.44); Carbon Dioxide 25 mmol/L (23-31); Chloride 105 mmol/L (98-107); Estimated GFR-MDRD 62; Globulin 2.8 g/dL (2.4-3.5); Glucose 103 mg/dL (83-110); Lipase 16 U/L (8-78); Magnesium 1.9 mg/dL (1.6-2.6); Potassium 3.9 mmol/L (3.5-5.1); Protein, Total 6.6 g/dL (6.0-8.3); Sodium 139 mmol/L (136-145)
[2019-12-04 20:57] LABS: Mucous/LPF 1+ LPF (<2+); RBC/HPF 0-3 HPF (0-3); Squamous Epithelial 0-3 HPF (0-3); WBC/HPF 0-3 HPF (0-3)
--- NOTE | 2019-12-04 21:47 | RAD ---
PORTABLE CHEST: 12/04/19 An AP portable film at 2021 is compared with a 09/07/19 study. The heat is normal in size and the lungs are clear. There is no vascular congestion or edema. No effu sions are seen. There has been no adverse interval change. IMPRESSION: No acute thoracic finding. POS: HOME
== END 2019-12-04 21:00 | disposition home or self-care (01) ==
LOC: BURERS 19:51
DX: E86.0 Dehydration (principal); E03.9 Hypothyroidism, unspecified; K21.9 Gastro-esophageal reflux disease without esophagitis; I10 Essential (primary) hypertension; F17.220 Nicotine dependence, chewing tobacco, uncomplicated; Z79.899 Other long term (current) drug therapy
CPT/HCPCS: 36415; 51701; 71045; 80053; 81003; 81015; 83605; 83690; 83735; 83880; 84443; 84484; 85025; 87040; 93005; 94760

== ENCOUNTER 2020-03-15 16:52 | Emergency (ER) | payer MEDICARE, MEDICAID | END 2020-03-15 17:21 | disposition left against medical advice (07) | LOC: BURERS 16:52 | DX: Z53.21 Procedure and treatment not carried out due to patient leaving prior to being seen by health care provider (principal) ==

== ENCOUNTER 2020-04-27 15:13 | Emergency (ER) | payer MEDICARE, MEDICAID ==
[2020-04-27 16:16] LABS: #Basophils 0.1 thou/uL (0.0-0.2); #Eosinphils 0.2 thou/uL (0.0-0.7); #Lymphocytes 1.5 thou/uL (1.20-3.40); #Monocytes 0.7 thou/uL (0.11-0.59); #Neutrophils 5.9 thou/uL (1.40-6.50); %Basophils 1.3 % (0.0-1.0); %Eosinophils 1.9 % (0.0-10.0); %Lymphocytes 18.1 % (21.0-51.0); %Monocytes 8.4 % (0.0-10.0); %Neutrophils 70.3 % (42.0-75.0); Hemoglobin 12.8 g/dL (12.0-16.0); Mean Corpuscular HGB CONC 33.2 g/dL (32.0-36.0); Mean Corpuscular Hemoglobin 32.2 pg (27.0-31.0); Mean Platelet Volume 6.6 fL (7.4-10.4); Platelet Count 203 thou/uL (130-400); RBC Distribution Width 12.5 % (11.5-14.5); Red Blood Cell (RBC) Count 3.96 mill/uL (4.20-5.40); White Blood Cell (WBC) Count 8.4 thou/uL (4.8-10.8)
[2020-04-27 16:33] LABS: ALT (SGPT) Less than 7 U/L (8-55); AST (SGOT) 12 U/L (5-34); Albumin 3.4 g/dL (3.4-4.8); Alkaline Phosphatase 43 U/L (40-110); Anion Gap 14 mmol/L (10-20); BUN (Urea Nitrogen) 7 mg/dL (9.8-20.1); Bilirubin, Total 0.5 mg/dL (0.2-1.2); Calc. Creatinine Clearance 0 mL/min (70-130); Calcium 8.1 mg/dL (7.8-10.44); Carbon Dioxide 25 mmol/L (23-31); Chloride 107 mmol/L (98-107); Globulin 2.5 g/dL (2.4-3.5); Glucose 112 mg/dL (83-110); Potassium 3.2 mmol/L (3.5-5.1); Protein, Total 5.9 g/dL (6.0-8.3); Sodium 143 mmol/L (136-145)
[2020-04-27] MEDS ORDERED: Potassium Chloride 20 MEQ TAB ONE (17:09)
--- NOTE | 2020-04-27 19:46 | RAD ---
PORTABLE CHEST: 04/27/20 An AP portable film at 1621 is compared with a 12/04/19 study. The heart remains normal in size. The lungs are clear with no acute infiltrate or effusion seen. Ther e is no vascular congestion or edema. The mediastinum was unremarkable. IMPRESSION: No acute thoracic findings. POS: HOME
== END 2020-04-27 17:20 | disposition home or self-care (01) ==
LOC: BURERS 15:13
DX: E87.6 Hypokalemia (principal); E03.9 Hypothyroidism, unspecified; I10 Essential (primary) hypertension; J44.9 Chronic obstructive pulmonary disease, unspecified
CPT/HCPCS: 36415; 71045; 80053; 83880; 84484; 85025; 93005

== ENCOUNTER 2020-04-28 16:58 | Emergency (ER) | payer MEDICARE, MEDICAID ==
[2020-04-28] MEDS ORDERED: Lorazepam 2 MG/ML VIAL ONE (17:16)
[2020-04-28 17:32] LABS: #Basophils 0.1 thou/uL (0.0-0.2); #Eosinphils 0.2 thou/uL (0.0-0.7); #Lymphocytes 1.8 thou/uL (1.20-3.40); #Monocytes 0.8 thou/uL (0.11-0.59); #Neutrophils 3.6 thou/uL (1.40-6.50); %Basophils 1.3 % (0.0-1.0); %Eosinophils 2.6 % (0.0-10.0); %Lymphocytes 28.4 % (21.0-51.0); %Monocytes 11.9 % (0.0-10.0); %Neutrophils 55.8 % (42.0-75.0); Hemoglobin 12.4 g/dL (12.0-16.0); Mean Corpuscular HGB CONC 31.9 g/dL (32.0-36.0); Mean Corpuscular Hemoglobin 31.7 pg (27.0-31.0); Mean Corpuscular Volume 99.4 fL (78.0-98.0); Mean Platelet Volume 7.4 fL (7.4-10.4); Platelet Count 228 thou/uL (130-400); Red Blood Cell (RBC) Count 3.91 mill/uL (4.20-5.40); White Blood Cell (WBC) Count 6.5 thou/uL (4.8-10.8)
[2020-04-28 17:51] LABS: Acetaminophen Less than 6.0 mcg/mL (10.0-30.0); Alcohol Less than 10 mg/dL (Less than 10); Salicylate Less than 8.0 mg/dL (15.0-30.0)
[2020-04-28 17:54] LABS: ALT (SGPT) 8 U/L (8-55); AST (SGOT) 14 U/L (5-34); Albumin 3.6 g/dL (3.4-4.8); Alkaline Phosphatase 52 U/L (40-110); Anion Gap 14 mmol/L (10-20); BUN (Urea Nitrogen) 8 mg/dL (9.8-20.1); Bilirubin, Total 0.3 mg/dL (0.2-1.2); Calc. Creatinine Clearance 0 mL/min (70-130); Calcium 8.4 mg/dL (7.8-10.44); Carbon Dioxide 24 mmol/L (23-31); Chloride 108 mmol/L (98-107); Estimated GFR-MDRD 65; Globulin 2.8 g/dL (2.4-3.5); Glucose 116 mg/dL (83-110); Potassium 3.3 mmol/L (3.5-5.1); Protein, Total 6.4 g/dL (6.0-8.3); Sodium 143 mmol/L (136-145)
--- NOTE | 2020-04-28 19:09 | RAD ---
PORTABLE CHEST: 04/28/20 Comparison is made with the 04/27 study. This AP portable film at 1741 continues to show a normal siz ed heart and clear lungs. No focal infiltrates, effusions or vascular congestion could be seen. The m ediastinum appears normal and the trachea is midline. IMPRESSION: No acute thoracic finding. POS: HOME
== END 2020-04-28 18:49 | disposition home or self-care (01) ==
LOC: BURERS 16:58
DX: R07.9 Chest pain, unspecified (principal); R06.00 Dyspnea, unspecified; E87.6 Hypokalemia
CPT/HCPCS: 36415; 71045; 80053; 80307; 83880; 84484; 85025; 93005; 94760; 96374; J2060

== ENCOUNTER 2020-11-10 12:38 | Emergency (ER) | payer MEDICARE, MEDICAID ==
[2020-11-10 13:28] LABS: Bilirubin Negative (Negative); Blood, Urine Trace (Negative); Clarity Clear (Clear); Glucose, Urine (Dipstick) Negative (Negative); Ketone, Urine Negative (Negative); Leukocyte Negative (Negative); Nitrite Negative (Negative); Protein, Urine (Dipstick) Negative (Neg-Trace); Urobilinogen 0.2 mg/dL (Less than 2)
[2020-11-10 13:28] LABS: #Basophils 0.1 thou/uL (0.0-0.2); #Eosinphils 0.1 thou/uL (0.0-0.7); #Lymphocytes 1.6 thou/uL (1.20-3.40); #Monocytes 0.6 thou/uL (0.11-0.59); #Neutrophils 11.1 thou/uL (1.40-6.50); %Basophils 0.6 % (0.0-1.0); %Eosinophils 0.8 % (0.0-10.0); %Lymphocytes 11.8 % (21.0-51.0); %Monocytes 4.3 % (0.0-10.0); %Neutrophils 82.5 % (42.0-75.0); Hemoglobin 14.9 g/dL (12.0-16.0); Mean Corpuscular Hemoglobin 32.1 pg (27.0-31.0); Mean Corpuscular Volume 97.5 fL (78.0-98.0); Platelet Count 244 thou/uL (130-400); RBC Distribution Width 12.7 % (11.5-14.5); Red Blood Cell (RBC) Count 4.64 mill/uL (4.20-5.40); White Blood Cell (WBC) Count 13.5 thou/uL (4.8-10.8)
[2020-11-10 13:39] LABS: Bacteria/HPF Rare-Few HPF (None Seen); RBC/HPF 0-3 HPF (0-3); Squamous Epithelial 0-3 HPF (0-3); WBC/HPF 0-3 HPF (0-3)
[2020-11-10 13:46] LABS: ALT (SGPT) 14 U/L (8-55); AST (SGOT) 19 U/L (5-34); Albumin 4.2 g/dL (3.4-4.8); Alkaline Phosphatase 57 U/L (40-110); Anion Gap 14 mmol/L (10-20); BUN (Urea Nitrogen) 12 mg/dL (9.8-20.1); Bilirubin, Total 0.3 mg/dL (0.2-1.2); Calc. Creatinine Clearance 0 mL/min (70-130); Calcium 8.8 mg/dL (7.8-10.44); Carbon Dioxide 26 mmol/L (23-31); Chloride 101 mmol/L (98-107); Globulin 3.4 g/dL (2.4-3.5); Glucose 111 mg/dL (83-110); Potassium 3.8 mmol/L (3.5-5.1); Protein, Total 7.6 g/dL (5.8-8.1); Sodium 137 mmol/L (136-145)
[2020-11-10] MEDS ORDERED: Ondansetron ODT 4 MG TAB ONE (13:51)
== END 2020-11-10 16:00 | disposition home or self-care (01) ==
LOC: BURERS 12:38
DX: R42 Dizziness and giddiness (principal); R11.0 Nausea; E03.9 Hypothyroidism, unspecified; I10 Essential (primary) hypertension; F17.220 Nicotine dependence, chewing tobacco, uncomplicated; Z79.899 Other long term (current) drug therapy
CPT/HCPCS: 36415; 80053; 81003; 81015; 84484; 85025; 93005; Q0162

== ENCOUNTER 2021-01-23 10:58 | Emergency (ER) | payer MEDICARE, MEDICAID ==
[2021-01-23] MEDS ORDERED: Ondansetron PF 4 MG/2 ML Vial ONE (11:19)
[2021-01-23 11:43] LABS: Eosinophils 3 % (0-10); Hemoglobin 14.4 g/dL (12.0-16.0); Lymphocytes 16 % (21-51); MDiff Complete? YES; Mean Corpuscular Hemoglobin 31.7 pg (27.0-31.0); Mean Corpuscular Volume 96.3 fL (78.0-98.0); Mean Platelet Volume 7.5 fL (7.4-10.4); Monocytes 16 % (0-10); Neutrophil 65 % (42-75); Platelet Count 189 thou/uL (130-400); RBC Distribution Width 12.8 % (11.5-14.5); Red Blood Cell (RBC) Count 4.52 mill/uL (4.20-5.40); White Blood Cell (WBC) Count 9.1 thou/uL (4.8-10.8)
[2021-01-23 11:47] LABS: ALT (SGPT) 9 U/L (8-55); AST (SGOT) 14 U/L (5-34); Albumin 3.9 g/dL (3.4-4.8); Alkaline Phosphatase 57 U/L (40-110); Anion Gap 16 mmol/L (10-20); BUN (Urea Nitrogen) 8 mg/dL (9.8-20.1); Bilirubin, Total 0.4 mg/dL (0.2-1.2); Calc. Creatinine Clearance 0 mL/min (70-130); Calcium 9.2 mg/dL (7.8-10.44); Carbon Dioxide 23 mmol/L (23-31); Chloride 103 mmol/L (98-107); Globulin 3.4 g/dL (2.4-3.5); Glucose 131 mg/dL (83-110); Potassium 4.1 mmol/L (3.5-5.1); Protein, Total 7.3 g/dL (5.8-8.1); Sodium 138 mmol/L (136-145)
[2021-01-23 20:59] LABS: SARS-CoV-2 PCR by NAA DETECTED (NotDetected)
== END 2021-01-23 12:59 | disposition home or self-care (01) ==
LOC: BURERS 10:58
DX: U07.1 COVID-19 (principal); M54.5 Low back pain; J44.9 Chronic obstructive pulmonary disease, unspecified; E03.9 Hypothyroidism, unspecified; I50.9 Heart failure, unspecified; I11.0 Hypertensive heart disease with heart failure; F17.220 Nicotine dependence, chewing tobacco, uncomplicated
CPT/HCPCS: 71046; 80053; 83880; 84484; 85025; 93005; 94760; U0003; U0005; 96374; J2405

== ENCOUNTER 2021-12-29 15:20 | Emergency (ER) | payer MEDICAID, MEDICARE, OTHER ==
[2021-12-29] MEDS ORDERED: Ondansetron ODT 4 MG TAB ONE (16:17)
[2021-12-29] MEDS ORDERED: HYDROcodone/Acetaminophen 5/325 mg Tablet ONE (16:17)
[2021-12-29 16:23] LABS: #Basophils 0.1 thou/uL (0.0-0.2); #Eosinphils 0.1 thou/uL (0.0-0.7); #Monocytes 1.2 thou/uL (0.11-0.59); #Neutrophils 7.1 thou/uL (1.40-6.50); %Eosinophils 1.4 % (0.0-10.0); %Lymphocytes 10.1 % (21.0-51.0); %Monocytes 12.3 % (0.0-10.0); %Neutrophils 75.2 % (42.0-75.0); Mean Corpuscular HGB CONC 32.3 g/dL (32.0-36.0); Mean Corpuscular Hemoglobin 31.6 pg (27.0-31.0); Mean Corpuscular Volume 97.9 fL (78.0-98.0); Mean Platelet Volume 7.5 fL (7.4-10.4); Platelet Count 212 thou/uL (130-400); Red Blood Cell (RBC) Count 4.12 mill/uL (4.20-5.40); White Blood Cell (WBC) Count 9.4 thou/uL (4.8-10.8)
[2021-12-29 16:42] LABS: ALT (SGPT) 9 U/L (8-55); AST (SGOT) 13 U/L (5-34); Albumin 3.7 g/dL (3.4-4.8); Alkaline Phosphatase 51 U/L (40-110); Anion Gap 14 mmol/L (10-20); BUN (Urea Nitrogen) 8 mg/dL (9.8-20.1); Bilirubin, Total 0.5 mg/dL (0.2-1.2); Calc. Creatinine Clearance 0 mL/min (70-130); Calcium 8.5 mg/dL (7.8-10.44); Carbon Dioxide 23 mmol/L (23-31); Chloride 104 mmol/L (98-107); Estimated GFR 90; Globulin 2.9 g/dL (2.4-3.5); Glucose 94 mg/dL (83-110); Lipase 13 U/L (8-78); Potassium 3.5 mmol/L (3.5-5.1); Protein, Total 6.6 g/dL (5.8-8.1); Sodium 137 mmol/L (136-145)
[2021-12-29 16:54] LABS: Bilirubin Negative (Negative); Blood, Urine Trace (Negative); Glucose, Urine (Dipstick) Negative (Negative); Ketone, Urine Negative (Negative); Leukocyte Small (Negative); Nitrite Negative (Negative); Protein, Urine (Dipstick) Negative (Neg-Trace); Urobilinogen 0.2 mg/dL (Less than 2)
[2021-12-29 16:55] LABS: Clarity Hazy (Clear)
[2021-12-29 17:04] LABS: Bacteria/HPF 1+ HPF (None Seen); RBC/HPF 0-3 HPF (0-3); Squamous Epithelial 0-3 HPF (0-3); WBC/HPF 0-3 HPF (0-3)
== END 2021-12-29 18:00 | disposition home or self-care (01) ==
LOC: BURERS 15:20
DX: U07.1 COVID-19 (principal); J44.9 Chronic obstructive pulmonary disease, unspecified; I10 Essential (primary) hypertension; G89.29 Other chronic pain; M54.9 Dorsalgia, unspecified; E03.9 Hypothyroidism, unspecified; F17.220 Nicotine dependence, chewing tobacco, uncomplicated; Z79.899 Other long term (current) drug therapy
CPT/HCPCS: 36415; 71045; 80053; 81003; 81015; 83690; 85025; 93005; Q0162; U0003; U0005

== ENCOUNTER 2022-01-27 14:37 | Emergency (ER) | payer MEDICARE, OTHER ==
[2022-01-27] MEDS ORDERED: Iopamidol 370 76% 100 ML VIAL FS ONE (14:38)
[2022-01-27] MEDS ORDERED: Fentanyl 100 MCG/2 ML VIAL SLOW IVP ONE (14:38)
[2022-01-27] MEDS ORDERED: Ondansetron PF 4 MG/2 ML Vial IVP ONE (14:38)
[2022-01-27 14:52] LABS: Bilirubin Negative (Negative); Blood, Urine Negative (Negative); Clarity Clear (Clear); Glucose, Urine (Dipstick) Negative (Negative); Ketone, Urine Negative (Negative); Leukocyte Negative (Negative); Nitrite Negative (Negative); Protein, Urine (Dipstick) Negative (Neg-Trace); Urobilinogen 0.2 mg/dL (Less than 2)
[2022-01-27 15:05] LABS: #Basophils 0.1 thou/uL (0.0-0.2); #Eosinphils 0.2 thou/uL (0.0-0.7); #Lymphocytes 2.6 thou/uL (1.20-3.40); #Neutrophils 5.8 thou/uL (1.40-6.50); %Basophils 1.2 % (0.0-1.0); %Eosinophils 2.2 % (0.0-10.0); %Lymphocytes 26.7 % (21.0-51.0); %Monocytes 10.4 % (0.0-10.0); %Neutrophils 59.6 % (42.0-75.0); Hemoglobin 14.4 g/dL (12.0-16.0); Mean Corpuscular HGB CONC 33.6 g/dL (32.0-36.0); Mean Corpuscular Hemoglobin 31.9 pg (27.0-31.0); Mean Corpuscular Volume 94.9 fL (78.0-98.0); Mean Platelet Volume 6.5 fL (7.4-10.4); Platelet Count 222 thou/uL (130-400); RBC Distribution Width 12.9 % (11.5-14.5); White Blood Cell (WBC) Count 9.8 thou/uL (4.8-10.8)
[2022-01-27 15:24] LABS: ALT (SGPT) 13 U/L (8-55); AST (SGOT) 20 U/L (5-34); Albumin 3.9 g/dL (3.4-4.8); Alkaline Phosphatase 67 U/L (40-110); Anion Gap 16 mmol/L (10-20); BUN (Urea Nitrogen) 13 mg/dL (9.8-20.1); Bilirubin, Total 0.3 mg/dL (0.2-1.2); Calc. Creatinine Clearance 0 mL/min (70-130); Calcium 9.2 mg/dL (7.8-10.44); Carbon Dioxide 24 mmol/L (23-31); Chloride 107 mmol/L (98-107); Estimated GFR 69; Globulin 3.3 g/dL (2.4-3.5); Glucose 99 mg/dL (83-110); Potassium 4.6 mmol/L (3.5-5.1); Protein, Total 7.2 g/dL (5.8-8.1); Sodium 142 mmol/L (136-145)
== END 2022-01-27 16:25 | disposition home or self-care (01) ==
LOC: BURERS 14:37
DX: K63.89 Other specified diseases of intestine (principal); J44.9 Chronic obstructive pulmonary disease, unspecified; E03.9 Hypothyroidism, unspecified; I11.0 Hypertensive heart disease with heart failure; I50.9 Heart failure, unspecified; F17.220 Nicotine dependence, chewing tobacco, uncomplicated
CPT/HCPCS: 74177; 80053; 81003; 83605; 83690; 83880; 84484; 85025; 93005; 94760; 96361; 96374; 96375; J2405; J3010; Q9967

== ENCOUNTER 2022-07-07 11:54 | Inpatient (IN) | payer MEDICARE, MEDICAID ==
[2022-07-07] MEDS ORDERED: methylPREDNISolone Sod Succ/PF 125 MG/2 ML VIAL ONE (12:16)
[2022-07-07] MEDS ORDERED: Ipratropium/Albuterol 3 ML NEB ONE ×2 (12:16→13:13)
[2022-07-07 12:36] LABS: #Basophils 0.1 thou/uL (0.0-0.2); #Lymphocytes 0.9 thou/uL (1.20-3.40); #Monocytes 1.8 thou/uL (0.11-0.59); #Neutrophils 13.5 thou/uL (1.40-6.50); %Basophils 0.8 % (0.0-1.0); %Lymphocytes 5.8 % (21.0-51.0); %Monocytes 11.2 % (0.0-10.0); %Neutrophils 82.3 % (42.0-75.0); Hemoglobin 13.6 g/dL (12.0-16.0); Mean Corpuscular HGB CONC 34.3 g/dL (32.0-36.0); Mean Corpuscular Hemoglobin 32.5 pg (27.0-31.0); Mean Corpuscular Volume 94.8 fl (78.0-98.0); Mean Platelet Volume 7.3 fL (7.4-10.4); Platelet Count 200 10x3/uL (130-400); RBC Distribution Width 12.5 % (11.5-14.5); Red Blood Cell (RBC) Count 4.18 mill/uL (4.20-5.40); White Blood Cell (WBC) Count 16.4 10x3/uL (4.8-10.8)
[2022-07-07 12:40] LABS: Anion Gap 19 mmol/L (10-20); BUN (Urea Nitrogen) 9 mg/dL (9.8-20.1); Calc. Creatinine Clearance 0 mL/min (70-130); Carbon Dioxide 19 mmol/L (23-31); Chloride 100 mmol/L (98-107); Potassium 3.8 mmol/L (3.5-5.1); Sodium 134 mmol/L (136-145)
[2022-07-07 12:41] LABS: ALT (SGPT) 14 U/L (8-55); AST (SGOT) 24 U/L (5-34); Albumin 4.3 g/dL (3.4-4.8); Alkaline Phosphatase 69 U/L (40-110); Bilirubin, Total 0.8 mg/dL (0.2-1.2); Estimated GFR 75; Globulin 3.8 g/dL (2.4-3.5); Glucose 120 mg/dL (83-110); Protein, Total 8.1 g/dL (5.8-8.1)
[2022-07-07 12:49] LABS: Base Excess-Venous -0.5 mmol/L (-2.0 to 3.0); Bicarbonate (HCO3v) 23.8 mmol/L (22.0-28.0); CO2 Tension (PvCO2) 37.3 mmHg (42.0-51.0); Calcium, Ionized 1.02 mmol/L (1.15-1.33); Chloride 100 mmol/L (98-107); Hemoglobin - Calc 14.6 g/dL (12.0-16.0); Potassium 3.6 mmol/L (3.5-5.1); Sodium 135 mmol/L (138-145)
[2022-07-07] MEDS ORDERED: Doxycycline 100 MG CAP ONE (13:13)
[2022-07-07 14:31] LABS: SARS-CoV-2 NAA Rapid Test Not Detected (NotDetected)
[2022-07-07] MEDS ORDERED: Albuterol 2.5 MG/0.5 ML NEB NEB PRN (14:54)
[2022-07-07 14:56] VITALS: BMI 21.8
[2022-07-07] MEDS: Ipratropium/Albuterol 3 ML NEB NEB SCH ×2 (16:17→21:09)
[2022-07-07] MEDS ORDERED: Bisacodyl 5 MG TAB PO PRN (16:23)
[2022-07-07] MEDS ORDERED: Guaifenesin DM 100-10/5 ML UDCUP PO PRN (16:23)
[2022-07-07] MEDS ORDERED: Ipratropium/Albuterol 3 ML NEB NEB PRN (16:26)
[2022-07-07] MEDS: Carvedilol 3.125 MG TAB PO SCH (17:08)
[2022-07-07] MEDS: cefTRIAXone\\ROCEPHIN 2 GM in Sodium Chloride 0.9% 100 ML IVPB SCH (17:15)
[2022-07-07] MEDS: Acetaminophen 325 MG TAB PO PRN (18:14)
[2022-07-07] MEDS: Doxycycline 100 MG CAP PO SCH (21:09)
[2022-07-07] MEDS: methylPREDNISolone Sod Succ 40 MG VIAL IVP SCH (21:09)
[2022-07-08] MEDS: Ipratropium/Albuterol 3 ML NEB NEB SCH (00:45)
[2022-07-08] MEDS: Levothyroxine Sodium 100 MCG TAB PO SCH (05:21)
[2022-07-08 05:55] LABS: #Basophils 0.1 thou/uL (0.0-0.2); #Lymphocytes 0.8 thou/uL (1.20-3.40); #Monocytes 0.9 thou/uL (0.11-0.59); #Neutrophils 13.7 thou/uL (1.40-6.50); %Basophils 0.4 % (0.0-1.0); %Lymphocytes 5.2 % (21.0-51.0); %Monocytes 5.9 % (0.0-10.0); %Neutrophils 88.4 % (42.0-75.0); Hemoglobin 12.8 g/dL (12.0-16.0); Mean Corpuscular HGB CONC 33.8 g/dL (32.0-36.0); Mean Corpuscular Hemoglobin 32.7 pg (27.0-31.0); Mean Corpuscular Volume 96.6 fl (78.0-98.0); Mean Platelet Volume 7.2 fL (7.4-10.4); Platelet Count 221 10x3/uL (130-400); RBC Distribution Width 12.7 % (11.5-14.5); Red Blood Cell (RBC) Count 3.91 mill/uL (4.20-5.40); White Blood Cell (WBC) Count 15.5 10x3/uL (4.8-10.8)
[2022-07-08 06:08] LABS: ALT (SGPT) 16 U/L (8-55); AST (SGOT) 25 U/L (5-34); Albumin 3.9 g/dL (3.4-4.8); Alkaline Phosphatase 60 U/L (40-110); Anion Gap 18 mmol/L (10-20); BUN (Urea Nitrogen) 16 mg/dL (9.8-20.1); Bilirubin, Total 0.3 mg/dL (0.2-1.2); Calc. Creatinine Clearance 35 mL/min (70-130); Calcium 9.1 mg/dL (7.8-10.44); Carbon Dioxide 24 mmol/L (23-31); Chloride 101 mmol/L (98-107); Estimated GFR 55; Globulin 3.7 g/dL (2.4-3.5); Glucose 180 mg/dL (83-110); Potassium 3.1 mmol/L (3.5-5.1); Protein, Total 7.6 g/dL (5.8-8.1); Sodium 140 mmol/L (136-145)
[2022-07-08] MEDS: Mometasone/Formoterol 200/5 60 PUFF INH SCH ×2 (06:48→18:17)
[2022-07-08] MEDS ORDERED: Potassium Chloride 20 MEQ TAB PO SCH (08:00)
[2022-07-08] MEDS: Nicotine 21 MG PATCH TD SCH (08:38)
[2022-07-08] MEDS: cefTRIAXone\\ROCEPHIN 2 GM in Sodium Chloride 0.9% 100 ML IVPB SCH ×2 (08:38→08:39)
[2022-07-08] MEDS: Lisinopril 20 MG TAB PO SCH (08:44)
[2022-07-08] MEDS: methylPREDNISolone Sod Succ 40 MG VIAL IVP SCH ×2 (08:44→20:32)
[2022-07-08] MEDS: Sertraline 100 MG TAB PO SCH (08:44)
[2022-07-08] MEDS: Famotidine 20 MG TAB PO SCH (08:45)
[2022-07-08] MEDS: Doxycycline 100 MG CAP PO SCH ×2 (08:45→20:32)
[2022-07-08] MEDS: Carvedilol 3.125 MG TAB PO SCH ×2 (08:46→17:06)
[2022-07-08] MEDS: Cholecalciferol 1,000 UNITS (25 MCG) TAB PO SCH (08:46)
[2022-07-08 08:49] LABS: Bilirubin Negative (Negative); Blood, Urine Small (Negative); Clarity Slightly Cloudy (Clear); Glucose, Urine (Dipstick) Negative (Negative); Ketone, Urine Trace mg/dL (Negative); Leukocyte Small (Negative); Nitrite Negative (Negative); Protein, Urine (Dipstick) 30 mg/dL (Neg-Trace); Urobilinogen 0.2 mg/dL (Less than 2); pH, Urine 5.5 (5.0-9.0)
[2022-07-08] MEDS ORDERED: FLU VACC QS2022-23(65YR UP)/PF 240 MCG/0.7 ML SYRINGE IM ONE (09:00)
[2022-07-08 09:03] LABS: Bacteria/HPF Rare-Few HPF (None Seen); CAUTI Indications for Culture Dysuria,urgency,freq; RBC/HPF 0-3 HPF (0-3); WBC/HPF 0-3 HPF (0-3)
[2022-07-08 09:04] LABS: Urine Culture Reflex No No
[2022-07-08] MEDS: Acetaminophen 325 MG TAB PO PRN ×2 (09:35→20:31)
[2022-07-08] MEDS: hydrOXYzine 25 MG TAB PO SCH (20:32)
[2022-07-08] MEDS: Benzonatate 100 MG CAP PO PRN (22:20)
[2022-07-08] MEDS: Loperamide HCl 2 MG CAP PO PRN (22:20)
[2022-07-09] MEDS: Benzonatate 100 MG CAP PO PRN ×2 (03:49→18:37)
[2022-07-09] MEDS: Loperamide HCl 2 MG CAP PO PRN (03:50)
[2022-07-09] MEDS: Levothyroxine Sodium 100 MCG TAB PO SCH (05:15)
[2022-07-09] MEDS: Mometasone/Formoterol 200/5 60 PUFF INH SCH ×2 (05:19→20:32)
[2022-07-09 05:58] LABS: #Basophils 0.1 thou/uL (0.0-0.2); #Lymphocytes 1.3 thou/uL (1.20-3.40); #Monocytes 1.2 thou/uL (0.11-0.59); #Neutrophils 17.3 thou/uL (1.40-6.50); %Basophils 0.5 % (0.0-1.0); %Lymphocytes 6.7 % (21.0-51.0); %Monocytes 5.9 % (0.0-10.0); Hemoglobin 12.7 g/dL (12.0-16.0); Mean Corpuscular HGB CONC 33.8 g/dL (32.0-36.0); Mean Corpuscular Hemoglobin 32.6 pg (27.0-31.0); Mean Corpuscular Volume 96.3 fl (78.0-98.0); Mean Platelet Volume 7.1 fL (7.4-10.4); Platelet Count 242 10x3/uL (130-400); RBC Distribution Width 12.9 % (11.5-14.5); White Blood Cell (WBC) Count 19.9 10x3/uL (4.8-10.8)
[2022-07-09 06:13] LABS: ALT (SGPT) 20 U/L (8-55); AST (SGOT) 30 U/L (5-34); Albumin 3.5 g/dL (3.4-4.8); Alkaline Phosphatase 58 U/L (40-110); Anion Gap 13 mmol/L (10-20); BUN (Urea Nitrogen) 21 mg/dL (9.8-20.1); Bilirubin, Total 0.2 mg/dL (0.2-1.2); Calc. Creatinine Clearance 42 mL/min (70-130); Calcium 8.8 mg/dL (7.8-10.44); Carbon Dioxide 23 mmol/L (23-31); Chloride 106 mmol/L (98-107); Estimated GFR 69; Globulin 3.3 g/dL (2.4-3.5); Glucose 139 mg/dL (83-110); Protein, Total 6.8 g/dL (5.8-8.1); Sodium 138 mmol/L (136-145)
[2022-07-09] MEDS ORDERED: Sodium Chloride 0.9% 1,000 ML IV SCH (07:30)
[2022-07-09] MEDS: Carvedilol 3.125 MG TAB PO SCH ×2 (09:55→18:37)
[2022-07-09] MEDS: Famotidine 20 MG TAB PO SCH (09:55)
[2022-07-09] MEDS: methylPREDNISolone Sod Succ 40 MG VIAL IVP SCH ×2 (09:55→20:29)
[2022-07-09] MEDS: Nicotine 21 MG PATCH TD SCH (09:56)
[2022-07-09] MEDS: Lisinopril 20 MG TAB PO SCH (09:56)
[2022-07-09] MEDS: Saccharomyces boulardii 250 MG CAP PO SCH (09:56)
[2022-07-09] MEDS: Cholecalciferol 1,000 UNITS (25 MCG) TAB PO SCH (09:56)
[2022-07-09] MEDS: Sertraline 100 MG TAB PO SCH (09:56)
[2022-07-09 13:43] VITALS: TEMP 98.3
[2022-07-09] MEDS ORDERED: cefTRIAXone\\ROCEPHIN 2 GM in Sodium Chloride 0.9% 100 ML IVPB SCH (17:00)
[2022-07-09] MEDS: hydrOXYzine 25 MG TAB PO SCH (20:32)
[2022-07-10] MEDS: Levothyroxine Sodium 100 MCG TAB PO SCH (05:16)
[2022-07-10 05:55] LABS: #Lymphocytes 0.8 thou/uL (1.20-3.40); #Monocytes 1.3 thou/uL (0.11-0.59); #Neutrophils 13.2 thou/uL (1.40-6.50); %Basophils 0.3 % (0.0-1.0); %Monocytes 8.6 % (0.0-10.0); Hemoglobin 11.6 g/dL (12.0-16.0); Mean Corpuscular HGB CONC 34.2 g/dL (32.0-36.0); Mean Corpuscular Hemoglobin 33.1 pg (27.0-31.0); Mean Corpuscular Volume 96.8 fl (78.0-98.0); Mean Platelet Volume 7.4 fL (7.4-10.4); Platelet Count 223 10x3/uL (130-400); RBC Distribution Width 12.8 % (11.5-14.5); White Blood Cell (WBC) Count 15.4 10x3/uL (4.8-10.8)
[2022-07-10 06:00] LABS: Anion Gap 13 mmol/L (10-20)
[2022-07-10 06:03] LABS: ALT (SGPT) 18 U/L (8-55); AST (SGOT) 21 U/L (5-34); Albumin 3.2 g/dL (3.4-4.8); Alkaline Phosphatase 67 U/L (40-110); BUN (Urea Nitrogen) 17 mg/dL (9.8-20.1); Bilirubin, Total Less than 0.2 mg/dL (0.2-1.2); Calc. Creatinine Clearance 46 mL/min (70-130); Calcium 8.5 mg/dL (7.8-10.44); Carbon Dioxide 23 mmol/L (23-31); Chloride 110 mmol/L (98-107); Estimated GFR 76; Globulin 2.8 g/dL (2.4-3.5); Glucose 159 mg/dL (83-110); Potassium 4.3 mmol/L (3.5-5.1); Sodium 142 mmol/L (136-145)
[2022-07-10] MEDS: methylPREDNISolone Sod Succ 40 MG VIAL IVP SCH (11:01)
[2022-07-10] MEDS: Cholecalciferol 1,000 UNITS (25 MCG) TAB PO SCH (11:02)
[2022-07-10] MEDS: Famotidine 20 MG TAB PO SCH (11:02)
[2022-07-10] MEDS: Saccharomyces boulardii 250 MG CAP PO SCH (11:02)
[2022-07-10] MEDS: Sertraline 100 MG TAB PO SCH (11:02)
[2022-07-10] MEDS: Benzonatate 100 MG CAP PO PRN (11:02)
[2022-07-10] MEDS: Carvedilol 3.125 MG TAB PO SCH (11:03)
[2022-07-10] MEDS: Mometasone/Formoterol 200/5 60 PUFF INH SCH (11:03)
[2022-07-10] MEDS: Lisinopril 20 MG TAB PO SCH (11:10)
[2022-07-10 11:13] VITALS: BP 146/82
[2022-07-10] MEDS: Nicotine 21 MG PATCH TD SCH (14:51)
== END 2022-07-10 14:57 | disposition home or self-care (01) | DRG 191 ==
LOC: BURERS 11:54 → BURMED 13:20
PROVIDERS: ADMIT Family Medicine; ATTEND Family Medicine
DX: J44.1 Chronic obstructive pulmonary disease with (acute) exacerbation (principal); I50.42 Chronic combined systolic (congestive) and diastolic (congestive) heart failure; N39.0 Urinary tract infection, site not specified; Z20.822 Contact with and (suspected) exposure to COVID-19; I10 Essential (primary) hypertension; E03.9 Hypothyroidism, unspecified; F41.9 Anxiety disorder, unspecified; F17.220 Nicotine dependence, chewing tobacco, uncomplicated; F32.A Depression, unspecified; I11.0 Hypertensive heart disease with heart failure; E87.6 Hypokalemia; Z99.81 Dependence on supplemental oxygen; Z85.828 Personal history of other malignant neoplasm of skin; Z90.710 Acquired absence of both cervix and uterus; Z90.49 Acquired absence of other specified parts of digestive tract; Z82.49 Family history of ischemic heart disease and other diseases of the circulatory system; Z80.8 Family history of malignant neoplasm of other organs or systems; Z88.0 Allergy status to penicillin; Z79.899 Other long term (current) drug therapy; Z79.890 Hormone replacement therapy
CPT/HCPCS: 36415; 71045; 71046; 80053; 81001; 82330; 82803; 83880; 84484; 85025; 93005; 94664; 96374; J0696; J1650; J2920; J2930; J3490; J7050; J7611; J7620; U0002